=== PATIENT | male | born 1965 ===

== ENCOUNTER 2020-03-23 06:59 | Day surgery (SDC) | payer OTHER ==
[~2020-03-23] VITALS: Ht 177.8 cm; Wt 106.8 kg
[2020-03-23] VITALS (15 sets, daily range): BP systolic 104–150; BP diastolic 59–91; PULSE 81–95; TEMP 97.4
[2020-03-23 07:53] LABS: HEMATOCRIT 44.4 % (42.0-52.0); MEAN CELL VOLUME 89 fl (80.0-100.0); MEAN CORPUSCULAR HEMOGLOBIN 32 pg (27.0-31.0); MEAN CORPUSCULAR HGB CONC 36 g/dl (33.0-37.0); MEAN PLATELET VOLUME 9.1 fl (7.4-10.4); PLATELET COUNT 244 K/mm3 (130-400); RED BLOOD COUNT 4.99 M/mm3 (4.20-5.60); REDCELL DISTRIBUTION WIDTH-CV 12.1 % (11.5-14.5)
[2020-03-23] MEDS ORDERED: BASAGLAR K100 UNIT/1 SQ (08:00)
[2020-03-23] MEDS ORDERED: ZESTRIL 20MG TA20 MG PO (08:01)
[2020-03-23] MEDS ORDERED: TOPROL XL 25MG25 MG PO (08:01)
[2020-03-23] MEDS ORDERED: VICTOZA6 MG/ML SQ (08:02)
[2020-03-23] MEDS ORDERED: HYGROTON 2525 MG/TAB PO (08:02)
[2020-03-23] MEDS ORDERED: ASPIRIN E.C. 8181 MG PO (08:03)
[2020-03-23] MEDS ORDERED: GLUCOPHAGE1000 MG PO (08:03)
[2020-03-23] MEDS ORDERED: LIPITOR 40MG TA40 MG PO (08:03)
[2020-03-23] MEDS ORDERED: CINNAMON500 MG PO (08:03)
[2020-03-23 08:08] LABS: PROTHROMBIN TIME 11.6 SECONDS (9.7-12.8)
[2020-03-23 08:14] LABS: CALCIUM 9.6 mg/dL (8.4-10.2); CREATININE, serum 0.56 (0.66-1.25); POTASSIUM 3.9 mmol/L (3.4-5.0)
--- NOTE | 2020-03-23 09:06 | NUR ---
SEE MERGE FOR ALL MEDICATION ADMINISTRATION TIMES, INTRA AND POST SEDATION ASSESSMENTS
[2020-03-23] MEDS ORDERED: NITRO-DUR0.4 MG/PAT TD (10:13)
--- NOTE | 2020-03-23 10:15 | NUR ---
Blood sugar checked as pt is concerned about remaining NPO, and not having eaten since 1800 last night. Blood sugar remains stable. This nurse offers to call pt's , he states he will call her and declines wanting staff to call. Pt free of complaints. Call light in reach.
--- NOTE | 2020-03-23 13:03 | NUR ---
Air has been removed from TR band in 2ml increments without issue. Rt radial puncture site dressed with 2x2 and bandaid, wrapped with coban. Awaiting arrival of [facility] for transport to [facility]. Pt remains A&O, resting comfortably in bed, denies current needs. Attempt to call report, accepting nurse will call back when available.
--- NOTE | 2020-03-23 13:33 | NUR ---
Pt left in care of [facility] at 1317, bedside report was given to Bridge Painter Jose Miguel Mercado. Personal belongings were sent with pt. Nurse report given to KANNAN Louie at [facility] at this time.
--- NOTE | 2020-03-23 14:50 | NUR ---
Pt c/o increased pain to rt wrist just proximal to TR band. Site remains soft to palpation. 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 2ml of air is removed from band and pt reports relief. Bruising outlines marked. Pt denies further needs.
== END 2020-03-23 13:20 | disposition short-term general hospital (02) ==
LOC: COL.CAR 06:59
PROVIDERS: Internal Medicine Cardiovascular Disease
DX: I47.2 Ventricular tachycardia (principal); I25.110 Atherosclerotic heart disease of native coronary artery with unstable angina pectoris; I10 Essential (primary) hypertension; I25.9 Chronic ischemic heart disease, unspecified; E66.9 Obesity, unspecified; E03.9 Hypothyroidism, unspecified; F17.210 Nicotine dependence, cigarettes, uncomplicated; Z20.822 Contact with and (suspected) exposure to COVID-19; Z86.73 Personal history of transient ischemic attack (TIA), and cerebral infarction without residual deficits; Z79.82 Long term (current) use of aspirin; Z79.4 Long term (current) use of insulin; Z79.899 Other long term (current) drug therapy
CPT/HCPCS: J1644; J2250; J3010; Q9967

== ENCOUNTER → 2020-05-03 | Outpatient (CLI) | payer OTHER ==
[~2020-05-03] MED LIST: ASPIRIN E.C. 8181 MG PO; BASAGLAR K100 UNIT/1 SQ; CINNAMON500 MG PO; GLUCOPHAGE1000 MG PO; HYGROTON 2525 MG/TAB PO; LIPITOR 40MG TA40 MG PO; NITRO-DUR0.4 MG/PAT TD; TOPROL XL 25MG25 MG PO; VICTOZA6 MG/ML SQ; ZESTRIL 20MG TA20 MG PO
== END ==
LOC: COL.RAD 10:27
DX: I65.22 Occlusion and stenosis of left carotid artery (principal); I67.2 Cerebral atherosclerosis; I65.02 Occlusion and stenosis of left vertebral artery; I63.9 Cerebral infarction, unspecified
CPT/HCPCS: Q9967

== ENCOUNTER 2020-06-07 16:52 | Outpatient (RCR) | payer OTHER | END 2020-07-23 | disposition home or self-care (01) | LOC: COL.CR | DX: Z48.812 Encounter for surgical aftercare following surgery on the circulatory system (principal); Z95.1 Presence of aortocoronary bypass graft ==